=== PATIENT | male | born 1975 | race Caucasian/White ===

== ENCOUNTER 2022-09-04 00:15 | Day surgery (SDC) | payer BC, OTHER ==
[2022-09-04] MEDS ORDERED: CYCL10 PO (10:26)
[2022-09-04] MEDS ORDERED: MOTRIN IB200 MG PO (10:43)
[2022-09-04] MEDS ORDERED: LEVSOD25 PO (10:43)
[2022-09-04] MEDS ORDERED: PANT20 PO (10:44)
[2022-09-04] MEDS ORDERED: MULVITA PO (10:44)
[2022-09-04] MEDS ORDERED: TRAZ50 PO (10:44)
== END 2022-09-04 11:09 | disposition home or self-care (01) ==
LOC: ATC 00:15
DX: R53.82 Chronic fatigue, unspecified (principal); E03.9 Hypothyroidism, unspecified; G47.33 Obstructive sleep apnea (adult) (pediatric); R61 Generalized hyperhidrosis
CPT/HCPCS: 80400; 82533; J0834

== ENCOUNTER → 2025-08-06 | Outpatient (CLI) | payer BC, OTHER | LOC: PLD 07:10 | DX: D48.5 Neoplasm of uncertain behavior of skin (principal) ==